=== PATIENT | female | born 1970 | race American Indian/Alaskan Native ===

== ENCOUNTER 2017-08-15 12:52 | Emergency (ER) | payer MEDICAID, OTHER ==
[2017-08-15 12:52] VITALS: BMI 41.9
[2017-08-15 13:13] VITALS: BP 137/87; PULSE 72; RESP 18; TEMP 98.6; O2SAT 98
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
== END 2017-08-15 14:34 | disposition home or self-care (01) ==
LOC: C.ER 12:52
DX: S43.401A Unspecified sprain of right shoulder joint, initial encounter (principal); S93.402A Sprain of unspecified ligament of left ankle, initial encounter; V89.2XXA Person injured in unspecified motor-vehicle accident, traffic, initial encounter